=== PATIENT | male | born 1955 | race Caucasian/White ===

== ENCOUNTER 2021-11-08 10:02 | Inpatient (IN) | payer OTHER ==
[2021-11-02 15:55] LABS: BASOPHILS % (AUTO) 0.1 % (0-1); EOSINOPHILS % (AUTO) 0.7 % (0-6); LYMPHOCYTES # (AUTO) 0.4 X10'3 (1.1-4.8); LYMPHOCYTES % (AUTO) 7.2 % (21-51); MEAN CORPUSCULAR HEMOGLOBIN 29.9 PG (27.0-31.0); MEAN CORPUSCULAR HGB CONC 33.6 g/dL (33.0-36.5); MEAN PLATELET VOLUME 8.3 FL (7.4-10.4); MONOCYTES # (AUTO) 0.4 X10'3 (0-0.9); MONOCYTES % (AUTO) 6.9 % (2-12); NEUTROPHILS # (AUTO) 4.9 X10'3 (1.8-7.7); NEUTROPHILS % (AUTO) 85.1 % (42-75); PRE OP HEMATOCRIT 41.1 % (42.0-52.0); PRE OP HEMOGLOBIN 13.8 g/dL (14.0-17.9); PRE OP PLATELET COUNT 160 X10'3 (140-440); RED BLOOD COUNT 4.61 X10'6 (4.70-6.10); RED CELL DISTRIBUTION WIDTH 13.9 % (11.5-14.5)
[2021-11-02 16:07] LABS: ALBUMIN 3.7 G/DL (3.4-5.0); ALBUMIN/GLOBULIN RATIO 1.1 (1.1-1.5); ALKALINE PHOSPHATASE 53 IU/L (46-116); BLOOD UREA NITROGEN 9 MG/DL (7-18); CALCIUM 8.7 MG/DL (8.5-10.1); CHLORIDE 103 MMOL/L (99-107); PRE OP ALT 40 U/L (30-65); PRE OP ANION GAP 10 (8-16); PRE OP AST 18 U/L (10-37); PRE OP BILIRUB, TOTAL 0.6 MG/DL (0.0-1.0); PRE OP GLUCOSE 128 MG/DL (70-104); PRE OP POTASSIUM 3.9 MMOL/L (3.4-5.1); PRE OP SODIUM 138 MMOL/L (135-145); TOTAL PROTEIN 7.1 G/DL (6.4-8.2); eGFR > 90 ML/MIN
[~2021-11-08] VITALS: Ht 188 cm; Wt 76.2 kg
[2021-11-08] VITALS (20 sets, daily range): BP systolic 108–147; BP diastolic 47–88
[~2021-11-08 10:02] MED LIST: ALOG25TA PO; ATOR10TA87 PO; GABA300C PO; HYDR-3965 PO; LISI2.5T89 PO; METF-438 PO; OMEP20CA16 PO; ONDA8TAB13 PO; PROC10TA10 PO; SUCR1TAB PO; TRAZ-251 PO; ceFAZolin inj. 2,000 MG in dextrose 5%-water 100 ML IV ONE; famotidine 20mg tablet PO ONE; ringers solution, lacted 1,000 ML IV SCH
[2021-11-08] MEDS ORDERED: meperidine/PF 25mg/ml syringe IV PRN ×3 (11:20)
[2021-11-08] MEDS ORDERED: ringers solution, lacted 1,000 ML IV SCH (11:20)
[2021-11-08] MEDS ORDERED: proCHLORperazine 10 MG/2 ml inj IV PRN (11:20)
[2021-11-08] MEDS ORDERED: morphine 2 MG/ML inj. syringe IV PRN (11:20)
[2021-11-08] MEDS ORDERED: ondansetron/PF 4mg/2ml inj IV PRN (11:20)
[2021-11-08] MEDS ORDERED: BUPIVAcaine/PF 2.5 mg/ml (0.25%) 30ml vial ONE (13:11)
[2021-11-08] MEDS ORDERED: LIDOcaine 1% 30ml preserv. free vial ONE (13:11)
[2021-11-08] MEDS ORDERED: fentaNYL/PF 50MCG/1 ML 2ML syringe ONE (13:24)
[2021-11-08] MEDS ORDERED: midazolam 1 mg/ML 2ml injection ONE (13:24)
[2021-11-08] MEDS ORDERED: rocuronium 10mg/ml inj IV ONE (13:29)
[2021-11-08] MEDS ORDERED: propofol inj 20 ML IV ONE (13:33)
[2021-11-08] MEDS ORDERED: ondansetron/PF 4mg/2ml inj ONE (13:44)
[2021-11-08] MEDS ORDERED: meperidine/PF 50mg/ml syringe ONE (13:47)
[2021-11-08] MEDS ORDERED: glycopyrrolate 0.2mg/ml inj ONE (14:44)
[2021-11-08] MEDS ORDERED: acetaminophen 1,000mg/100ml IV 100 ML IV ONE (14:45)
[2021-11-08] MEDS ORDERED: ondansetron 4mg rapidly disintigrating tab PO PRN (14:55)
[2021-11-08] MEDS ORDERED: naloxone 0.4 mg/ml inj IV PRN (14:55)
[2021-11-08] MEDS ORDERED: HYDROcodone/acetaminophen 5mg/325mg tablet PO PRN (14:55)
[2021-11-08] MEDS ORDERED: gabapentin 300mg capsule PO PRN (14:55)
[2021-11-08] MEDS ORDERED: proCHLORperazine 10mg tablet PO PRN (14:55)
--- NOTE | 2021-11-08 14:55 | NUR ---
Received from OR via BED , accompanied by Anesthesiologist and report given by COLIN Anesthesiologist. PATIENT WAKING UP, DENIES PAIN, V/S WNL, SCD ON , PIV 20G LFA, ISLAND DRESSING C/D/I TO ABDOMEN. PEG TUBE DRESSING ON LLQ C/D/I. Addendum: 11/08/21 at 1539 by Marco A Quach RN Amended: Links added.
[2021-11-08] MEDS: morphine 4 MG/ML inj SYRINge IV PRN ×2 (15:43→15:48)
--- NOTE | 2021-11-08 16:15 | NUR ---
PATIENT HAS MET ALL CRITERIA FOR TRANSFER TO ORTHO FLOOR. VSS. DRESSINGS INTACT. BED LOW, CALL LIGHT PRESENT AND 2 RAILS UP. RN PRESENT TO ACCEPT CARE OF PATIENT AND REPORT HAS BEEN CALLED. ALL QUESTIONS ANSWERED TO ACCEPTING RN. Addendum: 11/08/21 at 1638 by Marco A Quach RN Amended: Links added.
--- NOTE | 2021-11-08 16:37 | NUR ---
Received pt from [facility]. Pt is A&Ox4, c/o 09/11 pain. Oriented pt to room and equipment.
[2021-11-08] MEDS: sucralfate 1 gm tablet PO SCH ×2 (17:18→20:10)
[2021-11-08] MEDS: potassium CL 20mEq in D5-1/2NS 1,000 ML IV SCH (17:18)
[2021-11-08] MEDS: HYDROcodone/acetaminophen 10/325mg tab PO PRN ×2 (17:20→21:05)
--- NOTE | 2021-11-08 18:20 | NUR ---
Patient in room ORTHO 4017. I have received report from OWEN ROMERO and had the opportunity to ask questions and assume patient care.
[2021-11-08] MEDS: HYDROmorphone inj. 0.5 MG/0.5 ML DISP.SYRIN IV PRN ×2 (20:07→23:53)
[2021-11-08] MEDS: pantoprazole 40mg Tablet.DR PO SCH (20:10)
[2021-11-08] MEDS ORDERED: traZODone 50mg tablet PO SCH (21:00)
[2021-11-08] MEDS ORDERED: atorvastatin 10mg tablet PO SCH (21:00)
[2021-11-08] MEDS ORDERED: linagliptin 5mg tablet PO SCH (21:00)
[2021-11-09] MEDS: HYDROcodone/acetaminophen 10/325mg tab PO PRN ×5 (00:59→17:19)
[2021-11-09] MEDS: potassium CL 20mEq in D5-1/2NS 1,000 ML IV SCH ×3 (01:11→15:32)
[2021-11-09 01:52] VITALS: BP 94/58
[2021-11-09] MEDS: HYDROmorphone inj. 0.5 MG/0.5 ML DISP.SYRIN IV PRN ×5 (03:57→19:38)
[2021-11-09 06:00] VITALS: BP 102/54
--- NOTE | 2021-11-09 06:33 | NUR ---
Problems reprioritized. Patient report given, questions answered & plan of care reviewed with OWEN GREY.
--- NOTE | 2021-11-09 06:45 | NUR ---
Patient in room ORTHO 4017. I have received report from ISELA WEAVER and had the opportunity to ask questions and assume patient care.
[2021-11-09] MEDS: pantoprazole 40mg Tablet.DR PO SCH (07:44)
[2021-11-09] MEDS: sucralfate 1 gm tablet PO SCH (07:44)
[2021-11-09 07:59] LABS: BASOPHILS % (AUTO) 0.4 % (0-1); EOSINOPHILS % (AUTO) 0.1 % (0-6); HEMATOCRIT 33.4 % (42.0-52.0); HEMOGLOBIN 11.3 g/dl (14.0-17.9); LYMPHOCYTES # (AUTO) 0.4 X10'3 (1.1-4.8); MEAN CORPUSCULAR HEMOGLOBIN 30.2 PG (27.0-31.0); MEAN CORPUSCULAR HGB CONC 33.8 g/dL (33.0-36.5); MEAN CORPUSCULAR VOLUME 89.3 FL (78-98); MEAN PLATELET VOLUME 7.9 FL (7.4-10.4); MONOCYTES # (AUTO) 0.9 X10'3 (0-0.9); MONOCYTES % (AUTO) 14.6 % (2-12); NEUTROPHILS # (AUTO) 5.1 X10'3 (1.8-7.7); NEUTROPHILS % (AUTO) 78.9 % (42-75); PLATELET COUNT 117 X10'3 (140-440); RED BLOOD COUNT 3.74 X10'6 (4.70-6.10); RED CELL DISTRIBUTION WIDTH 13.3 % (11.5-14.5); WHITE BLOOD COUNT 6.4 X10'3 (4.5-11.0)
[2021-11-09] MEDS ORDERED: lisinopril 2.5mg tablet PO SCH (08:00)
[2021-11-09 08:23] LABS: ALBUMIN 2.6 G/DL (3.4-5.0); ANION GAP 5 (8-16); BLOOD UREA NITROGEN 7 MG/DL (7-18); BUN/CREATININE RATIO 11.9 (5.4-32.0); CALCIUM 7.9 MG/DL (8.5-10.1); CHLORIDE 105 MMOL/L (99-107); CREATININE 0.59 MG/DL (0.60-1.10); GLUCOSE 163 MG/DL (70-104); SODIUM 139 MMOL/L (135-145); TOTAL CARBON DIOXIDE 29.5 MMOL/L (24-32); eGFR > 90 ML/MIN
[2021-11-09] MEDS: enoxaparin 40mg/0.4ml syringe SQ SCH (08:41)
--- NOTE | 2021-11-09 09:43 | NUR ---
TF consult: Per EMR pt with esophageal cancer, currently POD #1 s/p gastrojejunostomy tube placement. See TF recommendations below. LBM 11/07. Will continue to follow closely and monitor need to adjust nutrition recommendations. Recommendations: 1) Continuous TF using Vital AF with 67 mL/hr goal rate to provide 1608 mL total volume/day, 1930 kcal, 120 g protein, and 1304 mL water 2) Additional 100 mL water flush Q4H; monitor serum Na 3) Prealbumin q Sunday/ 4) Daily scaled weights 5) Routine bowel retirement TF RECOMMENDATIONS: 1) Continuous TF via jejunostomy using Osmolite 1.2 or equivalent with goal rate of 75 mL/hr. Begin at previously tolerated rate and advance by 20 mL Q8H as tolerated to goal rate 2) Additional 100 mL water flush Q4H 3) Outpatient RD to titrate to goal rate and adjust recommendations as appropriate based on patient's estimated nutrient needs Addendum: 11/09/21 at [address] Amended: Links added.
[2021-11-09 11:03] VITALS: BP 120/58
[2021-11-09] MEDS ORDERED: ondansetron 4mg rapidly disintigrating tab JT PRN (11:52)
[2021-11-09] MEDS ORDERED: gabapentin 300mg capsule JT PRN (11:52)
[2021-11-09] MEDS ORDERED: proCHLORperazine 10mg tablet JT PRN (11:53)
--- NOTE | 2021-11-09 14:06 | NUR ---
started tube feed @ 27, advance per order
[2021-11-09] MEDS: sucralfate 1 gm tablet JT SCH ×3 (14:09→21:41)
[2021-11-09 18:00] VITALS: BP 100/59
[2021-11-09] MEDS ORDERED: oxyCODONE/APAP 5-325mg tablet PO PRN (18:05)
--- NOTE | 2021-11-09 18:45 | NUR ---
Problems reprioritized. Patient report given, questions answered & plan of care reviewed with PAT RN.
[2021-11-09] MEDS: oxyCODONE/APAP 5-325mg tablet PO PRN (21:38)
[2021-11-09] MEDS: atorvastatin 10mg tablet JT SCH (21:39)
[2021-11-09] MEDS: linagliptin 5mg tablet JT SCH (21:39)
[2021-11-09] MEDS: traZODone 50mg tablet JT SCH (21:40)
[2021-11-09 22:00] VITALS: BP 96/56
[2021-11-10] MEDS: oxyCODONE/APAP 5-325mg tablet PO PRN ×4 (01:52→21:19)
[2021-11-10 06:00] VITALS: BP 102/54
[2021-11-10 06:16] VITALS: BP 102/54
[2021-11-10 07:19] LABS: BASOPHILS % (AUTO) 0.1 % (0-1); EOSINOPHILS % (AUTO) 0.9 % (0-6); HEMATOCRIT 36.1 % (42.0-52.0); HEMOGLOBIN 12.1 g/dl (14.0-17.9); LYMPHOCYTES # (AUTO) 0.4 X10'3 (1.1-4.8); LYMPHOCYTES % (AUTO) 8.3 % (21-51); MEAN CORPUSCULAR HEMOGLOBIN 30.4 PG (27.0-31.0); MEAN CORPUSCULAR HGB CONC 33.6 g/dL (33.0-36.5); MEAN CORPUSCULAR VOLUME 90.5 FL (78-98); MEAN PLATELET VOLUME 7.9 FL (7.4-10.4); MONOCYTES # (AUTO) 0.9 X10'3 (0-0.9); MONOCYTES % (AUTO) 19.7 % (2-12); NEUTROPHILS # (AUTO) 3.2 X10'3 (1.8-7.7); PLATELET COUNT 118 X10'3 (140-440); RED BLOOD COUNT 3.99 X10'6 (4.70-6.10); RED CELL DISTRIBUTION WIDTH 13.7 % (11.5-14.5); WHITE BLOOD COUNT 4.5 X10'3 (4.5-11.0)
[2021-11-10 07:28] LABS: ALBUMIN 2.6 G/DL (3.4-5.0); ANION GAP 4 (8-16); BLOOD UREA NITROGEN 7 MG/DL (7-18); CALCIUM 8.1 MG/DL (8.5-10.1); CHLORIDE 106 MMOL/L (99-107); CREATININE 0.54 MG/DL (0.60-1.10); GLUCOSE 147 MG/DL (70-104); PREALBUMIN 17.4 MG/DL (19-36); SODIUM 139 MMOL/L (135-145); TOTAL CARBON DIOXIDE 28.6 MMOL/L (24-32); eGFR > 90 ML/MIN
--- NOTE | 2021-11-10 08:08 | NUR ---
Problems reprioritized. Patient report given, questions answered & plan of care reviewed with megan hdz.
[2021-11-10] MEDS: enoxaparin 40mg/0.4ml syringe SQ SCH (08:50)
[2021-11-10] MEDS: lansoprazole 15mg solutab JT SCH (08:50)
[2021-11-10] MEDS: sucralfate 1 gm tablet JT SCH ×4 (08:50→21:00)
[2021-11-10] MEDS: lisinopril 2.5mg tablet JT SCH (08:52)
[2021-11-10] MEDS: HYDROmorphone inj. 0.5 MG/0.5 ML DISP.SYRIN IV PRN ×2 (08:53→19:21)
[2021-11-10 09:46] LABS: PLATELET ESTIMATE DECREASED; TOTAL CELLS COUNTED 100
[2021-11-10 10:00] VITALS: BP 123/59
[2021-11-10 18:00] VITALS: BP 114/67
--- NOTE | 2021-11-10 19:43 | NUR ---
Patient in room ORTHO 4017. I have received report from ADARSH WEAVER and had the opportunity to ask questions and assume patient care.
[2021-11-10] MEDS ORDERED: PER5325T PO (19:50)
[2021-11-10] MEDS: atorvastatin 10mg tablet JT SCH (21:18)
[2021-11-10] MEDS: linagliptin 5mg tablet JT SCH (21:18)
[2021-11-10] MEDS: traZODone 50mg tablet JT SCH (21:18)
[2021-11-10 22:00] VITALS: BP 138/70
[2021-11-11] MEDS: oxyCODONE/APAP 5-325mg tablet PO PRN ×3 (02:02→11:13)
[2021-11-11] MEDS: HYDROmorphone inj. 0.5 MG/0.5 ML DISP.SYRIN IV PRN (05:03)
[2021-11-11 06:00] VITALS: BP 120/72
[2021-11-11 06:13] LABS: BASOPHILS % (AUTO) 0.2 % (0-1); EOSINOPHILS # (AUTO) 0.1 X10'3 (0-0.9); EOSINOPHILS % (AUTO) 1.4 % (0-6); HEMATOCRIT 35.7 % (42.0-52.0); LYMPHOCYTES # (AUTO) 0.3 X10'3 (1.1-4.8); LYMPHOCYTES % (AUTO) 6.9 % (21-51); MEAN CORPUSCULAR HEMOGLOBIN 30.5 PG (27.0-31.0); MEAN CORPUSCULAR HGB CONC 33.8 g/dL (33.0-36.5); MEAN CORPUSCULAR VOLUME 90.4 FL (78-98); MEAN PLATELET VOLUME 7.8 FL (7.4-10.4); MONOCYTES # (AUTO) 0.9 X10'3 (0-0.9); MONOCYTES % (AUTO) 19.5 % (2-12); NEUTROPHILS # (AUTO) 3.5 X10'3 (1.8-7.7); PLATELET COUNT 122 X10'3 (140-440); RED BLOOD COUNT 3.95 X10'6 (4.70-6.10); RED CELL DISTRIBUTION WIDTH 14.3 % (11.5-14.5); WHITE BLOOD COUNT 4.8 X10'3 (4.5-11.0)
--- NOTE | 2021-11-11 06:20 | NUR ---
Problems reprioritized. Patient report given, questions answered & plan of care reviewed with ADARSH WEAVER.
[2021-11-11 06:24] LABS: ALBUMIN 2.5 G/DL (3.4-5.0); ANION GAP 9 (8-16); BLOOD UREA NITROGEN 8 MG/DL (7-18); BUN/CREATININE RATIO 15.4 (5.4-32.0); CALCIUM 8.2 MG/DL (8.5-10.1); CHLORIDE 103 MMOL/L (99-107); CREATININE 0.52 MG/DL (0.60-1.10); GLUCOSE 147 MG/DL (70-104); POTASSIUM 3.6 MMOL/L (3.5-5.1); SODIUM 140 MMOL/L (135-145); TOTAL CARBON DIOXIDE 28.2 MMOL/L (24-32); eGFR > 90 ML/MIN
[2021-11-11] MEDS: lisinopril 2.5mg tablet JT SCH (07:15)
[2021-11-11] MEDS: lansoprazole 15mg solutab JT SCH (07:15)
[2021-11-11] MEDS: sucralfate 1 gm tablet JT SCH (07:15)
[2021-11-11] MEDS: enoxaparin 40mg/0.4ml syringe SQ SCH (07:16)
[2021-11-11 10:00] VITALS: BP 151/73
== END 2021-11-11 12:25 | disposition home health service (06) | DRG 337 ==
LOC: PAS IN 10:02 → ORTHO 4S 16:25
PROVIDERS: ADMIT Surgery; ATTEND Surgery
PROC: 0DNW0ZZ Release Peritoneum, Open Approach (ICD-10-PCS; 2021-11-08)
PROC: 0WJP4ZZ Inspection of Gastrointestinal Tract, Percutaneous Endoscopic Approach (ICD-10-PCS; 2021-11-08)
PROC: 0DHA0UZ Insertion of Feeding Device into Jejunum, Open Approach (ICD-10-PCS; principal; 2021-11-08 13:12)
DX: C15.9 Malignant neoplasm of esophagus, unspecified (principal); K22.2 Esophageal obstruction; Z53.31 Laparoscopic surgical procedure converted to open procedure; K66.0 Peritoneal adhesions (postprocedural) (postinfection); R13.10 Dysphagia, unspecified; Z79.84 Long term (current) use of oral hypoglycemic drugs; Z79.899 Other long term (current) drug therapy
CPT/HCPCS: 36415; 80048; 80053; 82948; 84134; 85007; 85025; 87081; 87811; 93005; 97116; 97161; 97530; A4215; A4618; A6402; A6449; A7000; B4087; G0378; J0131; J0690; J1170; J1650; J2175; J2250; J2270; J2405; J2704; J3010; J3480; J3490; J7060; J7120